=== PATIENT | male | born 1995 | race Two or more races ===

== ENCOUNTER 2023-07-25 09:32 | Emergency (ER) | payer OTHER, SELFPAY ==
--- NOTE | ~2023-07-25 | XR_ITS ---
EXAMINATION: XR HAND/WRIST, RIGHT CLINICAL INFORMATION: Pain COMPARISON: None TECHNIQUE: PA, lateral, and oblique views of the right hand and wrist. 5 views FINDINGS: The bones and soft tissues are normal. No fracture. Alignment is anatomic. Joint spaces are maintained. No erosions or soft tissue calcifications. XR/XR hand wrist RT IMPRESSION: No fracture or dislocation.
[2023-07-25 09:34] VITALS: BP 122/77; PULSE 78; RESP 18; TEMP 36.6; O2SAT 99; BMI 17.9
--- NOTE | 2023-07-25 10:02 | ED_ITS ---
HPI - Extremity Problem General Chief complaint: Extremity Injury, Upper Stated complaint: R hand pain Time Seen by Provider: 07/25/23 10:00 Source: patient and RN notes reviewed Mode of arrival: ambulatory Limitations: no limitations History of Present Illness HPI Narrative: 28 year old right hand dominant male with no significant pmhx presents to the ED today for evaluation of right wrist/ hand pain x1 days. He admits to falling asleep on a beach chair yesterday and upon waking, began to have pain in his right wrist. Admits this worsened upon waking up this morning. Is unsure if his wrist was in an odd position while sleeping. Endorses weakness/ tingling to the right hand that has not improved, prompting him to come to the ED for further evaluation. Admits to difficulty grasping things and right hand. Denies injury or trauma to the wrist. No OTC medications prior to arrival. Denies fevers, chills, pain radiation up the right arm, skin color changes. Related Data Previous Rx's ?Medication ?Instructions ?Recorded prednisone 50 mg tablet 50 mg PO DAILY 5 days #5 tabs 07/25/23 Allergies Allergy/AdvReac Type Severity Reaction Status Date / Time No Known Allergies Allergy Verified 07/25/23 09:37 Review of Systems Review of Systems: Constitutional: No fever, chills, fatigue, night sweats, weight changes ENT/Mouth: No ear pain, hearing loss, nasal congestion, sinus pain, rhinorrhea, sore throat Eyes: No eye pain, swelling, redness, vision changes, discharge Cardio: No chest pain, palpitations, STEELE, orthopnea, peripheral edema Pulm: No SOB, cough, sputum, wheezing, dyspnea, hemoptysis GI: No nausea, vomiting, hematemesis, abdominal pain, diarrhea, constipation, hematochezia, melena : No irregular bleeding, dysuria, frequency, urgency, hesitancy, hematuria, flank pain, urinary flow changes, urinary incontinence or retention MSK: No back pain, neck pain, joint pain, myalgias, +right wrist/ hand pain Skin: No lesions, rashes Neuro: No weakness, numbness, paresthesias, LOC, dizziness, headache Psych: No anxiety/panic, depression, SI/HI, AH/VH All other systems reviewed and are negative. [facility] Past Medical History Attestation statement: The following information was validated with the patient. Source: old records reviewed and nursing notes reviewed Social History Social History Advance Directives: No Advance Directives Information Provided: No Physical Exam Vital Signs: Vital Signs: Last Vital Signs Temp 98 F 07/25/23 12:32 Pulse 78 07/25/23 12:32 Resp 18 07/25/23 12:32 BP 122/77 07/25/23 12:32 Pulse Ox 99 07/25/23 12:32 O2 Del Method Room Air 07/25/23 12:32 BMI result Body Mass Index 17.9 Vital signs stable Const: General: cooperative, healthy appearing, comfortable and no acute distress Orientation/consciousness: patient oriented x3 Limitations: no limitations HEENT: Head: Yes normal to inspection, Yes No palpable skull fracture present, Yes normocephalic and Yes atraumatic Eyes: General: appearance normal, both eyes and all related structures Conjunctivae: conjunctivae normal Sclerae: sclerae normal Pupils: Equal, round and reactive pupils present Neck: Neck: Yes normal visual inspection, Yes full ROM and Yes no lymphadenopathy Resp: Effort & Inspection: normal respiratory effort and able to speak in complete sentences Auscultation: clear to auscultation bilaterally Cardio: Rate: regular rate Rhythm: regular rhythm Skin: General skin exam: no rashes or lesions noted Neuro: General: patient oriented x3 Cranial nerves: Yes Equal, round and reactive pupils present Extrem: Other: + right wrist/hand without overlying ski n changes, joint effusions or obvious deformities. Nontender to palpation. No palpable warmth, fluctuance or deformity. Negative Tinel. Negative Phalen. No snuffbox tenderness. Full ROM to right elbow, right wrist and all digits on right. Finger to thumb opposition intact. 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 2+ radial pulse. Course Course Course Narrative: 1220-- xray negative for fracture. suspicion for carpal tunnel. wrist splint provided. advised follow up. Patient has remained stable throughout ED visit today. Discussed worrisome signs and symptoms and when to return to the ED. All questions answered at this time. Patient is agreeable with disposition and stable for discharge. Medications Administered Discontinued Medications Generic Name Dose Route Start Last Admin Trade Name Freq PRN Reason Stop Dose Admin Ketorolac Tromethamine 30 mg 07/25/23 10:29 07/25/23 10:51 Ketorolac Tromethamine 30 Mg/Ml Vial IM 07/25/23 10:30 30 mg ONCE ONE Administration Medical Decision Making Medical Decision Making MDM Narrative: 28 year old right hand dominant male with no significant pmhx presents to the ED today for evaluation of right wrist/ hand pain x1 days. Vital signs stable. Patient is nontoxic-appearing and in no acute distress. Holding phone with right hand. On exam of right wrist/hand there are no overlying skin changes, joint effusions or obvious deformities. Nontender to palpation. No palpable warmth, fluctuance or deformity. Negative Tinel. Negative Phalen. No snuffbox tenderness. Full ROM to right elbow, right wrist and all digits on right. Finger to thumb opposition intact. 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 2+ radial pulse. Differential diagnosis includes contusion, carpal tunnel syndrome, arthritis. Low suspicion for fracture, dislocation, scaphoid fracture, neurovascular compromise, threat to limb, compartment syndrome, gout or pseudogout, septic arthritis. Plan for x-rays, pain control and re-evaluation. Differential Diagnosis Differential Diagnoses: The differential diagnosis associated with the presentation includes as above Admission/Observation Not indicated Independent Interpretation I performed an independent interpretation of an: Plain X-Ray Interpretation: X-ray right hand/wrist without fracture, agree with radiologist's interpretation. Radiology Impression Discussion of test interpretation with radiology: I have reviewed the radiologist's reading. Radiologist Impression: EXAMINATION: XR HAND/WRIST, RIGHT CLINICAL INFORMATION: Pain COMPARISON: None TECHNIQUE: PA, lateral, and oblique views of the right hand and wrist. 5 views FINDINGS: The bones and soft tissues are normal. No fracture. Alignment is anatomic. Joint spaces are maintained. No erosions or soft tissue calcifications. XR/XR hand wrist RT IMPRESSION: No fracture or dislocation. Independent Historian Clinical information obtained from an independent historian. History obtained from or confirmed by: Friend Prescription Management I considered prescription management with: Pain Medication and Other (Prednisone) Social Determinants Patient?s care significantly limited by Social Determinants of Health including: Other Social Determinant of Health Procedures Orthopedic Splinting/Casting Injury #1: Side: right Upper Extremity Injury Location: wrist Upper Extremity Immobilizer: wrist splint Critical Care Time Critical Care Time Critical Care Time: No Discharge Plan Discharge Clinical Impression: Carpal tunnel syndrome of right wrist Patient Disposition: Home, Self-Care Instructions: Paresthesia (ED), Steroid Joint Injection (DC), Carpal Tunnel Surgery (DC), Electromyography (DC) Additional Instructions: Your x-rays today were normal. You have been provided with a wrist splint to wear at night. Take Tylenol and ibuprofen as needed for pain/discomfort. Prednisone has been sent to your pharmacy to help with any inflammation within the wrist/hand. Take this as prescribed over the next 5 days. Follow-up with your primary care provider. You have also been provided with a referral to neurologist. You may call them to make an appointment. They will not call you. Return with new or worsening symptoms. In the case of an emergency call 911. Prescriptions: New prednisone 50 mg tablet 50 mg PO DAILY 5 Days Qty: 5 0RF Referrals: [facility] [place] [facility] [Provider Group] Stand Alone Forms: Work/School Release Interventions: ED Discharge Assessment Last Done: 07/25/23 12:32 Discharge Date/Time: 07/25/23 12:33 Print Language: Anguillan
[2023-07-25] MEDS: Ketorolac Tromethamine 30 MG/ML VIAL IM (10:51)
--- NOTE | 2023-07-25 10:55 | PC.NURSE ---
pt medicated per MAR.
[2023-07-25 12:32] VITALS: BP 122/77; PULSE 78; RESP 18; TEMP 36.6; O2SAT 99
== END 2023-07-25 12:33 | disposition home or self-care (01) ==
PROVIDERS: Emergency Provider Emergency Medicine
DX: G56.01 Carpal tunnel syndrome, right upper limb (principal); M79.641 Pain in right hand
CPT/HCPCS: 29125; 73110; 73130; 96372; 99283; 99284; J1885

== ENCOUNTER 2023-08-01 21:03 | Emergency (ER) | payer OTHER, SELFPAY ==
[2023-08-01 21:40] VITALS: BP 110/68; PULSE 78; RESP 16; TEMP 36.6; O2SAT 98; BMI 18.5
--- NOTE | 2023-08-01 22:16 | ED.EXTPRO ---
HPI - Extremity Problem General Chief complaint: Extremity Injury, Upper Stated complaint: seen for wrist prev, told to come back if wors. Time Seen by Provider: 08/01/23 22:13 Source: patient and old records reviewed Mode of arrival: ambulatory Limitations: no limitations History of Present Illness HPI Narrative: 28 yo male PMH of R carpal tunnel syndrome seen here 07/24 dx with carpal tunnel put in brace and given prednisone returns tonight with c/o R wrist pain and numbness since before 07/24. He notes he woke up one night after falling asleep on beech chair with arm over chair. When he woke up his R hand just droppped down and hasn't been the same since. 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 He tried the prednisone and the brace but it still doesn't work right and he cannot work. He does not have a PCP MD Complaint: other (R wrist drop) Onset (ago): week(s) (1+) Pain Consistency: constant Location: right and upper extremity Quality: dull Radiation: none Relieving factors: rest Exacerbating factors: other (movements) Associated symptoms: denies other symptoms Context: other (fell asleep with arm draped across beach chair) Related Data Previous Rx's ?Medication ?Instructions ?Recorded prednisone 50 mg tablet 50 mg PO DAILY 5 days #5 tabs 07/25/23 Allergies Allergy/AdvReac Type Severity Reaction Status Date / Time No Known Allergies Allergy Verified 08/01/23 21:44 Review of Systems Review of Systems: Constitutional : No Fever, No Chills ENT/Mouth : No Ear Pain, No Hoarseness, No sore throat Eyes: No Eye Pain, No Swelling, No Redness, No Foreign Body Cardiovascular : No Chest Pain, No SOB Respiratory : No Cough, No Dyspnea Gastrointestinal : No Nausea, No Vomiting, No Diarrhea, No abdominal Pain Genitourinary : No Dysuria, No Hematuria Musculoskeletal : positive joint pain, No Myalgias, No Joint Swelling Skin : No Skin lacerations, No rash Neuro : No Weakness, pos Numbness, No Loss of Consciousness, No Dizziness, No Headache All other systems reviewed and are negative PMFSH Past Medical History Attestation statement: The following information was validated with the patient. Source: old records reviewed Medical History Carpal tunnel syndrome Social History Social History (Updated 08/01/23 @ 22:17 by Narda Sumner DO) Patient Tobacco Use Status: Never used Tobacco Advance Directives: No Advance Directives Information Provided: No Do you have a plan to hurt others: No Plan Physical Exam Vital Signs: Vital Signs: Last Vital Signs Temp 97.8 F 08/01/23 21:40 Pulse 78 08/01/23 21:40 Resp 16 08/01/23 21:40 BP 110/68 08/01/23 21:40 Pulse Ox 98 08/01/23 21:40 O2 Del Method Room Air 08/01/23 21:40 BMI result Body Mass Index 18.5 Appearance: Alert. Oriented X3. No acute distress. Eyes: Pupils equal, round and reactive to light. ENT: Pharynx normal. Neck: Normal inspection. Neck supple. CVS: Normal heart rate and rhythm. Pulses normal. Respiratory: No respiratory distress. Breath sounds normal. Abdomen: Soft and nontender. Skin: Skin warm and dry. Normal skin color. Normal skin turgor. Extremities: No lower extremity edema. NR wrist drop noted - pulses intact, reports numbness along dermatome of thumb and sensations started posterior aspect of arm. wrist is completely dropped Neuro: Oriented X 3. No motor deficit. No sensory deficit. Medical Decision Making Medical Decision Making MDM Narrative: 28 yo male R hand dominant here with 1+ weeks of R wrist drop s/p falling asleep with arm draped across beach chair unfortunately already has brace and completed course of steroids - he will need EMG, PT/OT and PCP follow up which we discussed and he is to keep his brace on. There is nothing emergent to do at this time he is aware we did discuss he needs close PCP follow up. Differential Diagnosis Differential Diagnoses: The differential diagnosis associated with the presentation includes radial nerve palsy, peripheral compression Independent Historian Clinical information obtained from an independent historian. History obtained from or confirmed by: Spouse External Record Review External record reviewed: Inpatient record Prescription Management I considered prescription management with: Other Discharge Plan Discharge Clinical Impression: Right wrist drop, Right radial nerve palsy Patient Disposition: Home, Self-Care Instructions: Radial Nerve Palsy (ED) Additional Instructions: keep wearing the brace - this is going to require primary care doctor, EMG, physical therapy and occupational therapy you can alternate tylenol and motrin for pain this can take weeks to recover please follow up you need to see specialists in order to get better Prescriptions: No Action prednisone 50 mg tablet 50 mg PO DAILY 5 Days Qty: 5 0RF Stand Alone Forms: Work/School Release Print Language: Tajik
[2023-08-01 22:54] VITALS: BP 110/68; PULSE 78; RESP 16; TEMP 36.6; O2SAT 98
== END 2023-08-01 22:54 | disposition home or self-care (01) ==
PROVIDERS: Emergency Provider Emergency Medicine
DX: M21.331 Wrist drop, right wrist (principal); G56.31 Lesion of radial nerve, right upper limb; G56.01 Carpal tunnel syndrome, right upper limb
CPT/HCPCS: 99282; 99283

== ENCOUNTER 2023-10-01 22:33 | Emergency (ER) | payer OTHER, SELFPAY ==
--- NOTE | ~2023-10-01 | XR_ITS ---
EXAMINATION: XR WRIST, RIGHT CLINICAL INFORMATION: Question injury. Pain. COMPARISON: 07/25/2023 TECHNIQUE: PA, lateral, oblique, and scaphoid views of the right wrist. Of note, the images are not located in the correct patient jacket, but are situated under the same name, but in the jacket with MRN of [id number] and not [id number]. FINDINGS: No acute fracture or malalignment. Subtle abnormal morphology of the fifth metacarpal base may represent the sequela of an old healed fracture. Alignment is appropriate. Bone mineralization is normal. Soft tissue swelling at the wrist. XR/XR wrist RT min 3V IMPRESSION: Soft tissue swelling at the wrist. No acute fracture or malalignment.
[2023-10-01 22:40] VITALS: BP 112/68; PULSE 65; RESP 16; TEMP 36.7; O2SAT 99; BMI 18.6
--- NOTE | 2023-10-01 22:52 | ED.EXTPRO ---
HPI - Extremity Problem General Chief complaint: Extremity Injury, Upper Stated complaint: work inj, pinched hand in freezer Time Seen by Provider: 10/01/23 22:47 Source: patient Mode of arrival: ambulatory Limitations: no limitations History of Present Illness ED Provider: Edgardo MOYER HPI Narrative: This is a 28-year-old male presenting to the emergency department with right wrist pain for the past few days, patient reports 2 days ago he pinched his right hand in the freezer, since then has been having some discomfort in his right wrist. His work encouraged him to come in to be evaluated due to pain. He reports at baseline he has intermittent numbness to his right thumb secondary to radial nerve injury from a previous incident. This is unchanged. No new numbness or tingling. No new trauma. Patient able to move his wrist without discomfort. States just sometimes he gets intermittent pain to his right wrist throughout. Unable to pinpoint what exact point of pain. Denies numbness, tingling, fevers, chills. Has not taken anything [id number] for pain. Related Data Previous Rx's ?Medication ?Instructions ?Recorded prednisone 50 mg tablet 50 mg PO DAILY 5 days #5 tabs 07/25/23 Allergies Allergy/AdvReac Type Severity Reaction Status Date / Time No Known Allergies Allergy Verified 10/01/23 22:42 Review of Systems Review of Systems: Yes all other systems are reviewed and are negative PMFSH Past Medical History Attestation statement: The following information was validated with the patient. Source: old records reviewed and nursing notes reviewed Medical History Carpal tunnel syndrome Social History Social History Patient Tobacco Use Status: Never used Tobacco Do you have a plan to hurt others: No Plan Physical Exam Vital Signs: Vital Signs: Last Vital Signs Temp 98.0 F 10/01/23 22:40 Pulse 65 10/01/23 22:40 Resp 16 10/01/23 22:40 BP 112/68 10/01/23 22:40 Pulse Ox 99 10/01/23 22:40 O2 Del Method Room Air 10/01/23 22:40 BMI result Body Mass Index 18.6 vss Appearance: Alert.? Oriented X3.? No acute distress.? Head: Normocephalic, atraumatic, no step-offs or deformities Eyes: Pupils equal, round and reactive to light.? CVS: Normal heart rate and rhythm.? Pulses normal.? Respiratory: No respiratory distress.? Breath sounds normal.? Abdomen: Soft and nontender.? Skin: Skin warm and dry.? Normal skin color.? Normal skin turgor.? Extremities: 5/5 strength to bilateral upper and lower extremities 2+ radial pulses equal bilateral. No wrist drop. Normal sensation distally. Capillary refill less than 2 seconds to bilateral upper extremity digits. Full range of motion to bilateral wrists. No laxity. No discomfort with range of motion bilaterally. Back: No midline tenderness, no C-spine tenderness, full range of motion, no CVA tenderness bilaterally Neuro: Oriented X 3.? No motor deficit.? No sensory deficit. CN 2-12 intact Course Reevaluation(s) Reevaluation #1: Patient will be discharged with normal x-ray of right wrist Educated patient on diagnosis and treatment plan, answered all question, patient verbalizes understanding. At this time patient will be discharged home, advised to return with new or worsening symptoms. Educated on worrisome signs and symptoms and when to return. At this time I feel comfortable discharge home. Time: 22:56 Medical Decision Making Medical Decision Making [facility] Narrative: 1054 28 year old male presents w. r wrist pain PE 5/5 strength to bilateral upper and lower extremities 2+ radial pulses equal bilateral. No wrist drop. Normal sensation distally. Capillary refill less than 2 seconds to bilateral upper extremity digits. Full range of motion to bilateral wrists. No laxity. No discomfort with range of motion bilaterally. history and physical exam concerning for contusion versus sprain or strain. Unlikely fracture, dislocation, neurovascular compromise, compartment system, threat to limb. Plan imaging. Patient not requesting anything for pain. Will have him follow-up with the orthopedic team and the were connection Educated patient on diagnosis and treatment plan, answered all question, patient verbalizes understanding. At this time patient will be discharged home, advised to return with new or worsening symptoms. Educated on worrisome signs and symptoms and when to return. At this time I feel comfortable discharge home. Differential Diagnosis Differential Diagnoses: The differential diagnosis associated with the presentation includes history and physical exam concerning for contusion versus sprain or strain. Unlikely fracture, dislocation, neurovascular compromise, compartment system, threat to limb. Admission/Observation Consideration of admission/observation: Escalation of care including admission/observation considered unlikely Independent Interpretation I performed an independent interpretation of an: Plain X-Ray Radiology Impression Discussion of test interpretation with radiology: I have reviewed the radiologist's reading. Discharge Plan Discharge Clinical Impression: Pain in right wrist Patient Disposition: Home, Self-Care Instructions: Wrist Injury (ED), Arthralgia (ED), R.I.C.E. Treatment (ED) Additional Instructions: Take your medications as prescribed. If you were prescribed antibiotics today, it is important that you take your medication to their entirety, do not skip any doses, do not finish them early. Follow-up with your primary care provider this week. Return to the emergency department with new or worsening symptoms. Such as fevers, chills, chest pain, shortness of breath, nausea, vomiting, dizziness, headache, vision changes, lethargy In case of emergency call 911 Follow-up with orthopedic team if pain persists. You can take [id number] pain medicines ibuprofen every 6 hours Tylenol every 4 as needed for pain or discomfort. Prescriptions: No Action prednisone 50 mg tablet 50 mg PO DAILY 5 Days Qty: 5 0RF Referrals: [facility] [place] [facility] [place]Provider Group] - 1 week Physician,Genevieve J [Primary Care Provider] - 2 days Stand Alone Forms: Work/School Release Print Language: French
[2023-10-01 23:01] VITALS: BP 00/00; PULSE 0; RESP 0; TEMP -17.7; TEMP 0; O2SAT 0
== END 2023-10-01 23:05 | disposition home or self-care (01) ==
LOC: HO.ED 23:04
PROVIDERS: Emergency Provider Emergency Medicine
DX: S69.91XA Unspecified injury of right wrist, hand and finger(s), initial encounter (principal); M25.531 Pain in right wrist; X58.XXXA Exposure to other specified factors, initial encounter; Y93.9 Activity, unspecified; Y92.9 Unspecified place or not applicable; Y99.0 Civilian activity done for income or pay
CPT/HCPCS: 73110; 99282; 99283

== ENCOUNTER 2024-01-26 14:32 | Outpatient (AMB) | payer OTHER, SELFPAY ==
--- NOTE | 2024-01-26 14:44 | MHC.OFFVIS ---
Vital Signs 01/26/24 14:45 Height 6 ft 3 in Weight 151 lb 8 oz BMI 18.9 BP 110/70 Blood Pressure Location Rt brachial Position Sitting Pulse 68 Pulse Source Pulse Oximeter Pulse Oximetry (%) 97 Oxygen Delivery Method Room Air Intake Visit Reasons: ED-SYS DIR-R Hand Pain Intake Note: Patient presents in office for a new patient evaluation for right hand pain/radial nerve damage. Room Service Bellhop Required: No Accompanied by: Significant Other Allergies No Known Allergies Allergy (Verified 01/26/24 14:47) HPI Comments Details: 28y/o Right handed male comes for follow up after a wrist drop . 3 months ago eh was watching a show in [place] [employer] and slept in a chair He woke up with numbness in his right wrist and hand and wrist drop.He went to [facility] - was told carpal tunnel and given short course of steroids . His symptoms did not improve so he went back again , he was told that he has a different nerve injury -suggested EMG OT and PT> He was seen at [facility] - had EMG . It showed Right radial nerve damage between elbow and spiral groove . His symptoms started to improve and resolved in 3 months He has improved since then . 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 [facility] Medical History (Updated 01/26/24 @ 15:37 by Brenda Middleton MD) Radial nerve compression Carpal tunnel syndrome Social History Alcohol intake: current Comment: Occasionally Patient Tobacco Use Status: Never used Tobacco Substance Use Type: Marijuana Physical Exam Vital Signs: Last Vital Signs Pulse 68 01/26/24 14:45 BP 110/70 01/26/24 14:45 Pulse Ox 97 01/26/24 14:45 Oxygen Delivery Method Room Air 01/26/24 14:45 BMI result Body Mass Index 18.9 Const General: cooperative, healthy appearing and comfortable Nutritional Appearance: average body habitus Orientation/consciousness: patient oriented x3 Eyes Pupils: Equal, round and reactive pupils present Neuro General: patient oriented x3, gait normal, tone normal, moves all extremities and no focal motor deficits Cranial nerves: Yes Facial sensation intact/muscles of mastication intact, Yes Equal, round and reactive pupils present, Yes Bilaterally intact EOM present, Yes Nystagmus not present, Yes Normal facial strength present, Yes Midline tongue present and Yes Symmetric palate elevation present Cognition (Neuro): normal cognition Gait exam (Neuro): Normal gait present Motor exam (neuro): 5/5 motor strength present throughout and Normal motor muscle tone present throughout Deep tendon reflexes (DTR's): Right triceps reflex intensity grade: 2+, Left triceps reflex intensity grade: 2+, Rt Biceps (C5, C6): 2+, Left biceps reflex intensity grade: 2+, Right brachioradialis reflex intensity grade: 2+, Left brachioradialis reflex intensity grade: 2+, Right patellar reflex intensity grade: 2+ and Left patellar reflex intensity grade: 2+ Coordination: [id number] test normal Assessment & Plan Assessment & Plan (1) Radial nerve compression: Comment: Resolved Code(s): G56.30 - Lesion of radial nerve, unspecified upper limb Category: Medical Qualifiers: Laterality: right Qualified Code(s): G56.31 - Lesion of radial nerve, right upper limb Plan The patient is asymptomatic The patient was counseled on prevention of compression neuropathies Suggested elbow sleeves. Medications: Discontinued prednisone Discontinued Reason: Patient Completed Course 50 mg PO DAILY 5 days 5 tabs 0RF Coding Level of Care Code New Pt Level 3 (88654) Diagnoses Compression of right radial nerve G56.31 Laterality: right
[2024-01-26 14:45] VITALS: BP 110/70; PULSE 68; O2SAT 97; BMI 18.9
== END 2024-01-26 15:22 | disposition home or self-care (01) ==
PROVIDERS: Visit Provider Psychiatry & Neurology Neurology
DX: G56.31 Lesion of radial nerve, right upper limb (principal)
CPT/HCPCS: 99203

== ENCOUNTER → 2024-01-26 14:32 | Outpatient (BNVA) | payer OTHER, SELFPAY | PROVIDERS: Visit Provider Psychiatry & Neurology Neurology | DX: G56.31 Lesion of radial nerve, right upper limb (principal) | CPT/HCPCS: 99202 ==

== ENCOUNTER 2024-10-28 19:15 | Emergency (ER) | payer MEDICAID, SELFPAY ==
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
[2024-10-28 19:17] VITALS: BP 124/80; PULSE 78; O2SAT 98
[2024-10-28 19:29] VITALS: BP 133/64; PULSE 63; RESP 18; TEMP 36.9; O2SAT 96; BMI 18.4
--- NOTE | 2024-10-28 19:40 | PC.NURSE ---
pt UTD on tetanus, last admin: 09/15/2020
[2024-10-28 20:47] VITALS: BP 114/70; PULSE 68; RESP 16; TEMP 36.6; O2SAT 98
[2024-10-28 21:21] LABS: MANUAL DIFF FLAG NO
[2024-10-28 21:24] LABS: Hematocrit 38.4 % (42.0-52.0); Hemoglobin 13.1 g/dl (14.0-18.0); Imm Gran Abs Auto 0.01 X10*3/uL (0.00-0.03); Imm Gran Pct Auto 0.1 % (0.0-0.4); Lymphocytes Absolute Auto 2.2 X10*3/uL (1.2-4.9); Mean Corpuscular HGB Conc 34.1 g/dl (31.0-36.0); Mean Corpuscular Hemoglobin 29.9 pg (27.0-33.0); Mean Corpuscular Volume 87.7 fL (80.0-98.0); NRBC Abs Auto 0.000 X10*3/uL (0.0-0.012); NRBC Pct Auto 0.0 /100WBC (0.0-0.2); Platelet Count 115 X10*3/uL (160-400); Red Blood Count 4.38 X10*6/uL (4.60-5.80); White Blood Count 8.0 X10*3/uL (4.8-10.8)
[2024-10-28 21:41] LABS: Alanine Aminotransferase 19 U/L (0-40); Albumin Level 4.5 g/dL (3.5-5.0); Alkaline Phosphatase 39 U/L (39-117); Anion Gap 11 (12-20); Aspartate Amino Transferase 23 U/L (5-37); Blood Urea Nitrogen 25 mg/dL (9-16); Calcium 9.3 mg/dL (8.4-10.2); Carbon Dioxide 25 mmol/L (22-29); Chloride 111 mmol/L (96-108); Creatinine Clr Calc Pharmacy 104.4; Estimated Glomerular Filt Rate > 60; Potassium 3.8 mmol/L (3.3-5.1); Sodium 143 mmol/L (135-145); Total Protein 6.9 g/dL (6.5-8.0)
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
[2024-10-28] MEDS: iohexoL 350 MG/ML 100 ML INFUS..BTL 85 ML IV (22:11)
[2024-10-28 22:45] VITALS: BP 124/78; PULSE 57; RESP 16; TEMP 36.8; O2SAT 100
[2024-10-28 23:50] VITALS: BP 116/78; PULSE 70; RESP 16; TEMP 36.8; O2SAT 99
[2024-10-29 00:10] VITALS: BP 116/78; PULSE 70; RESP 16; TEMP 36.8; O2SAT 99
== END 2024-10-29 00:11 | disposition home or self-care (01) ==
PROVIDERS: Physician Assistant; Emergency Provider Emergency Medicine
DX: S00.83XA Contusion of other part of head, initial encounter (principal); S60.512A Abrasion of left hand, initial encounter; S60.511A Abrasion of right hand, initial encounter; S50.312A Abrasion of left elbow, initial encounter; S50.311A Abrasion of right elbow, initial encounter; S70.212A Abrasion, left hip, initial encounter; S70.211A Abrasion, right hip, initial encounter; S90.812A Abrasion, left foot, initial encounter; S90.811A Abrasion, right foot, initial encounter; V18.0XXA Pedal cycle driver injured in noncollision transport accident in nontraffic accident, initial encounter; R10.32 Left lower quadrant pain; Y93.55 Activity, bike riding; Y92.828 Other wilderness area as the place of occurrence of the external cause; Y99.8 Other external cause status
CPT/HCPCS: 36415; 70450; 73130; 74177; 80053; 85025; 96361; 96374; 99284; J2270; Q9967

== ENCOUNTER → 2024-10-28 20:59 | Outpatient (BNV) | payer SELFPAY | PROVIDERS: Emergency Provider Emergency Medicine; Visit Provider Radiology Diagnostic Radiology | DX: R16.0 Hepatomegaly, not elsewhere classified (principal); R51.9 Headache, unspecified; M79.642 Pain in left hand; M79.641 Pain in right hand | CPT/HCPCS: 70450; 73130; 74177 ==